=== PATIENT | female | born 1970 | race Caucasian/White ===

== ENCOUNTER 2016-11-06 22:40 | Emergency (ER) | payer MEDICAID, OTHER ==
[~2016-11-06] VITALS: Ht 162.6 cm; Wt 105.0 kg
[2016-11-07] MEDS ORDERED: ACETAMINOPHEN WITH CODEINE 300/30MG TABLET PO ONE (00:30)
[2016-11-07] MEDS ORDERED: LIDOCAINE HCL 1% 20ML VIAL (Pyxis) INJ MC ONE (01:45)
[2016-11-07 01:55] VITALS: BP 135/84
== END 2016-11-07 02:57 | disposition home or self-care (01) ==
LOC: ER 23:20
DX: S63.065A Dislocation of metacarpal (bone), proximal end of left hand, initial encounter (principal); E66.9 Obesity, unspecified; F17.200 Nicotine dependence, unspecified, uncomplicated; W18.39XA Other fall on same level, initial encounter; Y93.89 Activity, other specified; Y99.8 Other external cause status; Y92.480 Sidewalk as the place of occurrence of the external cause
CPT/HCPCS: 26742; 73130; 99284; J3490; Z7610